=== PATIENT | female | born 1955 | race Caucasian/White ===

== ENCOUNTER 2016-10-17 12:02 | Outpatient (CLI) | payer MEDICAID | END 2016-10-17 12:03 | disposition home or self-care (01) | DX: C50.911 Malignant neoplasm of unspecified site of right female breast (principal) ==

== ENCOUNTER 2016-12-04 19:44 | Outpatient (CLI) | payer MEDICAID | END 2016-12-04 19:45 | disposition home or self-care (01) | DX: L40.50 Arthropathic psoriasis, unspecified (principal); L40.9 Psoriasis, unspecified; M19.90 Unspecified osteoarthritis, unspecified site; M79.7 Fibromyalgia ==

== ENCOUNTER 2017-06-25 14:28 | Outpatient (CLI) | payer MEDICAID ==
--- NOTE | 2017-06-25 19:41 | XRAY Report ---
COMPLETE LUMBAR SPINE: 06/25/2017 CLINICAL INDICATION: Fibromyalgia. AP, lateral, oblique, coned-down views of the lumbar spine demonstrate mild degenerative disk disease . Disk space narrowing is worst at L2-3. There is no evidence of fracture or subluxation. Minimal facet arthropathy is present. IMPRESSION: MILD DEGENERATIVE CHANGES, WITH DISK SPACE NARROWING WORST AT L2-3. JOB #: [id number] EXT JOB #:[id number]
== END 2017-06-25 14:29 | disposition home or self-care (01) ==
LOC: DI 14:28
PROVIDERS: ATTEND Internal Medicine Rheumatology
DX: M51.36 Other intervertebral disc degeneration, lumbar region (principal); M47.896 Other spondylosis, lumbar region
CPT/HCPCS: 72110